=== PATIENT | male | born 1940 | race African-American/Black ===

== ENCOUNTER 2019-03-18 13:08 | Inpatient (IN) | payer MEDICARE, MEDICAID ==
[~2019-03-18] VITALS: Ht 188 cm; Wt 140.4 kg
[2019-03-18] MEDS ORDERED: FUROSEMIDE 20MG/2ML VIAL IVP ONE (16:15)
[2019-03-18 16:26] LABS: CHLORIDE 108 mEq/L (98-107)
[2019-03-18 16:28] LABS: HEMATOCRIT. 29.5 % (42.0-52.0); HEMOGLOBIN. 9.5 g/dL (14.0-18.0); MEAN CORPUSCULAR HEMOGLOBIN 27.5 pg (28.0-32.0); MEAN CORPUSCULAR VOLUME 85.3 fL (80.0-94.0); MEAN PLATELET VOLUME 8.4 fl (7.4-10.4); PLATELET 126 x1000/uL (130-400); RED BLOOD CELL COUNT 3.45 mill/uL (4.7-6.1); RED CELL DISTRIBUTION WIDTH 13.7 % (11.6-14.6)
[2019-03-18] MEDS ORDERED: ALBUTEROL (0.083%) 2.5MG/3ML NEB HHN STA (16:30)
[2019-03-18 16:36] LABS: INR 1.1; PARTIAL THROMBOPLASTIN TIME 30.9 sec (23.4-31.0); PROTHROMBIN TIME 11.4 sec (9.6-11.0)
[2019-03-18 17:08] LABS: PLATELET ESTIMATE DECREASED
[2019-03-18 21:30] VITALS: BP 112/56
[2019-03-18 22:00] VITALS: BP 112/56
[2019-03-18] MEDS ORDERED: DEXTROSE 50% WATER 50ML SYRINGE IV PRN (22:00)
[2019-03-18] MEDS ORDERED: DIPHENHYDRAMINE 50MG/ML VIAL IV PRN (22:00)
[2019-03-18] MEDS ORDERED: ONDANSETRON HCL 4MG/2ML INJ IV PRN (22:00)
[2019-03-18] MEDS ORDERED: IPRATROPIUM/ALBUTEROL 0.5-3(2.5)MG/3ML NEB INH PRN (22:00)
[2019-03-18] MEDS ORDERED: CLONIDINE 0.1MG TABLET PO PRN (22:00)
[2019-03-18] MEDS ORDERED: MAGNESIUM/ALUMINUM HYDROXIDE/SIMETHICONE 30ML UDC PO PRN (22:00)
[2019-03-18] MEDS ORDERED: MAGNESIUM HYDROXIDE 400MG/5ML 30ML UDC PO PRN (22:00)
[2019-03-18] MEDS ORDERED: ACETAMINOPHEN 325MG TABLET PO PRN (22:00)
[2019-03-18] MEDS: ENOXAPARIN 30MG/0.3ML SYR SUBCUT SCH (23:41)
[2019-03-18] MEDS: SODIUM CHLORIDE 0.9% INJ 3ML FLUSH IVF SCH (23:41)
[2019-03-18] MEDS ORDERED: IPRATROPIUM/ALBUTEROL 0.5-3(2.5)MG/3ML NEB HHN PRN (23:45)
[2019-03-18] MEDS: TEMAZEPAM 15MG CAPSULE PO PRN (23:56)
[2019-03-19] MEDS ORDERED: ALEN70TA68 PO (00:13)
[2019-03-19] MEDS ORDERED: HYDR12.54 PO (00:14)
[2019-03-19] MEDS ORDERED: NAPR500T7 PO (00:14)
[2019-03-19] MEDS ORDERED: FERR325T6 PO (00:15)
[2019-03-19] MEDS ORDERED: TERA10CA4 PO (00:16)
[2019-03-19] MEDS ORDERED: AMLO10TA80 PO (00:17)
[2019-03-19] MEDS ORDERED: DOCU100T PO (00:17)
[2019-03-19] MEDS ORDERED: METF-416 PO (00:18)
[2019-03-19] MEDS ORDERED: DUTA0.5C15 PO (00:18)
[2019-03-19] MEDS ORDERED: BENA20TA10 PO (00:19)
[2019-03-19] MEDS ORDERED: ALBU18HF2 IH (00:20)
[2019-03-19 04:00] VITALS: BP 145/81
[2019-03-19] MEDS: SODIUM CHLORIDE 0.9% INJ 3ML FLUSH IVF SCH ×3 (05:37→21:32)
[2019-03-19] MEDS: BLOOD SUGAR DIAGNOSTIC STRIP TEST SCH ×4 (06:18→20:44)
[2019-03-19] MEDS: INSULIN LISPRO 100 UNITS/ML SUBCUT SCH ×4 (07:36→20:44)
[2019-03-19 08:26] VITALS: BP 133/65
[2019-03-19] MEDS: DUTASTERIDE 0.5MG CAPSULE PO SCH (08:59)
[2019-03-19] MEDS: FUROSEMIDE 40MG/4ML VIAL IVP SCH (08:59)
[2019-03-19] MEDS ORDERED: AMLODIPINE 5MG TABLET PO SCH (09:00)
[2019-03-19] MEDS ORDERED: BENAZEPRIL 10MG TABLET PO SCH (09:00)
[2019-03-19] MEDS: DOCUSATE SODIUM 100MG CAPSULE PO SCH (09:01)
[2019-03-19] MEDS: ENOXAPARIN 30MG/0.3ML SYR SUBCUT SCH ×2 (09:12→21:32)
[2019-03-19] MEDS ORDERED: NAPROXEN 375MG TABLET PO SCH (10:15)
[2019-03-19] MEDS ORDERED: TRAMADOL 50MG TABLET PO PRN (10:15)
[2019-03-19 12:00] VITALS: BP 134/62
[2019-03-19] MEDS: NAPROXEN 375MG TABLET PO SCH ×2 (13:24→21:31)
[2019-03-19] MEDS: LOSARTAN POTASSIUM 50 MG TABLET PO SCH (14:17)
[2019-03-19 16:00] VITALS: BP 131/59
[2019-03-19 20:00] VITALS: BP 156/89
[2019-03-19] MEDS: TERAZOSIN HCL 5MG CAPSULE PO SCH (21:31)
[2019-03-19] MEDS: TEMAZEPAM 15MG CAPSULE PO PRN (21:31)
[2019-03-19] MEDS: FAMOTIDINE 20MG TABLET PO SCH (21:32)
[2019-03-20] VITALS (7 sets, daily range): BP systolic 106–139; BP diastolic 61–79
[2019-03-20] MEDS: SODIUM CHLORIDE 0.9% INJ 3ML FLUSH IVF SCH ×3 (06:50→22:00)
[2019-03-20] MEDS: BLOOD SUGAR DIAGNOSTIC STRIP TEST SCH ×4 (06:50→21:54)
[2019-03-20] MEDS: INSULIN LISPRO 100 UNITS/ML SUBCUT SCH ×4 (08:10→21:00)
[2019-03-20] MEDS: DUTASTERIDE 0.5MG CAPSULE PO SCH (09:29)
[2019-03-20] MEDS: FUROSEMIDE 40MG/4ML VIAL IVP SCH (09:29)
[2019-03-20] MEDS: NAPROXEN 375MG TABLET PO SCH ×2 (09:29→22:00)
[2019-03-20] MEDS: DOCUSATE SODIUM 100MG CAPSULE PO SCH (09:29)
[2019-03-20] MEDS: ENOXAPARIN 30MG/0.3ML SYR SUBCUT SCH ×2 (09:29→22:00)
[2019-03-20] MEDS: LOSARTAN POTASSIUM 50 MG TABLET PO SCH (09:31)
[2019-03-20] MEDS: TEMAZEPAM 15MG CAPSULE PO PRN (22:00)
[2019-03-20] MEDS: TERAZOSIN HCL 5MG CAPSULE PO SCH (22:00)
[2019-03-20] MEDS: FAMOTIDINE 20MG TABLET PO SCH (22:00)
[2019-03-21] VITALS (7 sets, daily range): BP systolic 147–176; BP diastolic 68–109
[2019-03-21] MEDS: BLOOD SUGAR DIAGNOSTIC STRIP TEST SCH ×3 (06:14→17:09)
[2019-03-21] MEDS: SODIUM CHLORIDE 0.9% INJ 3ML FLUSH IVF SCH ×2 (06:14→14:29)
[2019-03-21] MEDS: INSULIN LISPRO 100 UNITS/ML SUBCUT SCH ×3 (06:14→17:35)
[2019-03-21] MEDS: FUROSEMIDE 40MG/4ML VIAL IVP SCH (08:58)
[2019-03-21] MEDS: NAPROXEN 375MG TABLET PO SCH (08:58)
[2019-03-21] MEDS: LOSARTAN POTASSIUM 50 MG TABLET PO SCH (08:58)
[2019-03-21] MEDS: DOCUSATE SODIUM 100MG CAPSULE PO SCH (08:58)
[2019-03-21] MEDS: ENOXAPARIN 30MG/0.3ML SYR SUBCUT SCH (08:59)
[2019-03-21] MEDS: DUTASTERIDE 0.5MG CAPSULE PO SCH (08:59)
[2019-03-21] MEDS ORDERED: ENOXAPARIN 40MG/0.4ML SYR SUBCUT SCH (21:00)
== END 2019-03-21 18:46 | disposition home or self-care (01) | DRG 194 ==
LOC: ER 13:08 → 7WST 16:29 → ENRESERV 19:55
PROVIDERS: ADMIT Internal Medicine; ATTEND Internal Medicine
PROC: 5A09357 Assistance with Respiratory Ventilation, Less than 24 Consecutive Hours, Continuous Positive Airway Pressure (ICD-10-PCS; principal; 2019-03-20)
PROC: 5A09357 Assistance with Respiratory Ventilation, Less than 24 Consecutive Hours, Continuous Positive Airway Pressure (ICD-10-PCS; 2019-03-21)
DX: I13.0 Hypertensive heart and chronic kidney disease with heart failure and stage 1 through stage 4 chronic kidney disease, or unspecified chronic kidney disease (principal); J96.00 Acute respiratory failure, unspecified whether with hypoxia or hypercapnia; N17.9 Acute kidney failure, unspecified; E44.0 Moderate protein-calorie malnutrition; M54.30 Sciatica, unspecified side; N40.0 Benign prostatic hyperplasia without lower urinary tract symptoms; G47.30 Sleep apnea, unspecified; E78.5 Hyperlipidemia, unspecified; E66.01 Morbid (severe) obesity due to excess calories; E11.22 Type 2 diabetes mellitus with diabetic chronic kidney disease; D64.9 Anemia, unspecified; E78.00 Pure hypercholesterolemia, unspecified; G89.29 Other chronic pain; J44.9 Chronic obstructive pulmonary disease, unspecified; I50.43 Acute on chronic combined systolic (congestive) and diastolic (congestive) heart failure; I42.9 Cardiomyopathy, unspecified; N18.2 Chronic kidney disease, stage 2 (mild); Z68.39 Body mass index [BMI] 39.0-39.9, adult; Z82.49 Family history of ischemic heart disease and other diseases of the circulatory system; Z87.891 Personal history of nicotine dependence; Z79.84 Long term (current) use of oral hypoglycemic drugs
CPT/HCPCS: 36415; 71045; 82962; 83036; 83880; 84484; 93005; 93306; 93970; 94640; 94660; 96374; 99285; J1650; J1815; J1940; J7050; J7611; J7620

== ENCOUNTER 2019-04-10 13:11 | Inpatient (IN) | payer MEDICARE, MEDICAID ==
[~2019-04-10] VITALS: Ht 193 cm; Wt 143.4 kg
[~2019-04-10 13:11] MED LIST: ALBU18HF2 IH; ALEN70TA68 PO; AMLO10TA80 PO; BENA20TA10 PO; DOCU100T PO; DUTA0.5C15 PO; FERR325T6 PO; HYDR12.54 PO; METF-416 PO; NAPR500T7 PO; TERA10CA4 PO
[2019-04-10] MEDS ORDERED: FUROSEMIDE 40MG/4ML VIAL IV ONE (14:00)
[2019-04-10 14:28] LABS: BASOPHILS % 0.6 % (0.0-2.0); EOSINOPHILS % 9.9 % (0.0-5.0); HEMATOCRIT. 24.1 % (42.0-52.0); HEMOGLOBIN. 7.7 g/dL (14.0-18.0); LYMPHOCYTES % 16.2 % (20.0-50.0); MEAN CORPUSCULAR HEMOGLOBIN 27.4 pg (28.0-32.0); MEAN CORPUSCULAR VOLUME 85.6 fL (80.0-94.0); MEAN PLATELET VOLUME 7.9 fl (7.4-10.4); MONOCYTES % 7.2 % (2.0-8.0); NEUTROPHILS % 66.1 % (40.0-76.0); PLATELET 124 x1000/uL (130-400); RED BLOOD CELL COUNT 2.82 mill/uL (4.7-6.1); RED CELL DISTRIBUTION WIDTH 15.3 % (11.6-14.6)
[2019-04-10 14:37] LABS: CHLORIDE 107 mEq/L (98-107)
[2019-04-10 14:39] LABS: D-DIMER 2.19 mg/L FEU (<0.50); INR 1.1; PARTIAL THROMBOPLASTIN TIME 28.6 sec (23.4-31.0); PROTHROMBIN TIME 11.2 sec (9.6-11.0)
[2019-04-10 14:41] LABS: ETHANOL BLOOD < 10 mg/dL
[2019-04-10 14:50] LABS: BG BASE EXCESS 0.3 mmol/L (-2.0-2.0); BG CARBOXYHEMOGLOBIN 0.3 % (0.5-1.5); BG DEOXYHEMOGLOBIN 2.7 % (0.0-5.0); BG FRACTION INSPIRED OXYGEN 28; BG HCO3 ACT 26.6 mmol/L (22.0-26.0); BG METHEMOGLOBIN 0.6 % (0.0-1.5); BG OXYGEN SATURATION 97.3 % (92.0-98.5); BG OXYHEMOGLOBIN 96.4 % (94.0-97.0); BG PCO2 51.3 mmHg (35.0-45.0); BG PH 7.332 (7.350-7.450); BG PO2 116.6 mmHg (75.0-100.0); BG SAMPLE SITE RIGHT BRACHIAL; BG TOTAL HEMOGLOBIN 9.1 g/dL (12.0-18.0); BG VENT MODE NASAL CANNULA
[2019-04-10] MEDS ORDERED: NITROGLYCERIN OINT 1GM/INCH UDPKT TD ONE ×2 (15:30→16:00)
[2019-04-10 16:40] LABS: CLARITY URINE CLEAR (CLEAR); COLOR URINE YELLOW (YELLOW); KETONES URINE NEGATIVE (NEGATIVE); LEUKOCYTE ESTERASE URINE NEGATIVE (NEGATIVE); NITRITE URINE NEGATIVE (NEGATIVE); OCCULT BLOOD URINE 2+ (NEGATIVE); PROTEIN URINE 3+ (NEGATIVE); SPECIFIC GRAVITY URINE 1.015 (1.005-1.030); UROBILINOGEN URINE 0.2 E.U./dL (0.2-1.0)
[2019-04-10 16:56] LABS: *BARBITURATES SCREEN URINE NEGATIVE (NEGATIVE); *BENZODIAZEPINES SCREEN URINE NEGATIVE (NEGATIVE); *COCAINE SCREEN URINE NEGATIVE (NEGATIVE)
[2019-04-10 16:57] LABS: *AMPHETAMINES SCREEN URINE NEGATIVE (NEGATIVE); CANNABINOID URINE SCREEN NEGATIVE (NEGATIVE); METHADONE URINE SCREEN NEGATIVE (NEGATIVE); OPIATES URINE SCREEN NEGATIVE (NEGATIVE); PHENCYCLIDINE URINE SCREEN NEGATIVE (NEGATIVE)
[2019-04-10 18:57] LABS: BG BASE EXCESS 2.6 mmol/L (-2.0-2.0); BG BILEVEL POS AIRWAY PRESSURE 15/5; BG CARBOXYHEMOGLOBIN 0.7 % (0.5-1.5); BG DEOXYHEMOGLOBIN 1.9 % (0.0-5.0); BG FRACTION INSPIRED OXYGEN 28; BG HCO3 ACT 29.1 mmol/L (22.0-26.0); BG METHEMOGLOBIN 0.1 % (0.0-1.5); BG OXYGEN SATURATION 98.1 % (92.0-98.5); BG OXYHEMOGLOBIN 97.3 % (94.0-97.0); BG PCO2 54.6 mmHg (35.0-45.0); BG PH 7.344 (7.350-7.450); BG PO2 115.6 mmHg (75.0-100.0); BG SAMPLE SITE RIGHT RADIAL; BG TOTAL HEMOGLOBIN 10.2 g/dL (12.0-18.0); BG VENT MODE MASK - BIPAP; BG VENT RATE 16 set
[2019-04-10] MEDS ORDERED: ACETAMINOPHEN 325MG TABLET PO PRN (19:15)
[2019-04-10 21:15] VITALS: BP 153/94
[2019-04-10 22:00] VITALS: BP 172/104
[2019-04-10] MEDS: AMLODIPINE 5MG TABLET PO SCH (22:29)
[2019-04-10] MEDS: CLONIDINE 0.1MG TABLET PO PRN (22:29)
[2019-04-10 23:00] VITALS: BP 153/94
[2019-04-11] VITALS (14 sets, daily range): BP systolic 117–176; BP diastolic 63–96
[2019-04-11] MEDS: IPRATROPIUM/ALBUTEROL 0.5-3(2.5)MG/3ML NEB HHN PRN ×2 (00:22→07:30)
[2019-04-11] MEDS: BUDESONIDE 0.5MG/2ML NEB HHN SCH ×3 (00:22→20:38)
[2019-04-11 06:24] LABS: BASOPHILS % 0.6 % (0.0-2.0); HEMATOCRIT. 23.9 % (42.0-52.0); HEMOGLOBIN. 7.6 g/dL (14.0-18.0); LYMPHOCYTES % 16.2 % (20.0-50.0); MEAN CORPUSCULAR HEMOGLOBIN 27.5 pg (28.0-32.0); MEAN CORPUSCULAR VOLUME 86.2 fL (80.0-94.0); MEAN PLATELET VOLUME 8.7 fl (7.4-10.4); MONOCYTES % 6.8 % (2.0-8.0); NEUTROPHILS % 66.4 % (40.0-76.0); PLATELET 134 x1000/uL (130-400); RED BLOOD CELL COUNT 2.77 mill/uL (4.7-6.1); RED CELL DISTRIBUTION WIDTH 15.2 % (11.6-14.6)
[2019-04-11] MEDS ORDERED: FUROSEMIDE 40MG/4ML VIAL IVP SCH (07:15)
[2019-04-11] MEDS: GUAIFENESIN 600MG ER TABLET PO SCH ×2 (08:55→21:31)
[2019-04-11] MEDS: AMLODIPINE 5MG TABLET PO SCH ×2 (08:55→21:32)
[2019-04-11] MEDS ORDERED: AMLODIPINE 5MG TABLET PO SCH (09:00)
[2019-04-11] MEDS ORDERED: SIMETHICONE 80MG TABLET CHEW PO PRN (10:15)
[2019-04-11] MEDS: FERROUS SULFATE 325MG TABLET PO SCH ×2 (13:28→17:27)
[2019-04-11] MEDS: IPRATROPIUM/ALBUTEROL 0.5-3(2.5)MG/3ML NEB HHN SCH ×2 (14:18→20:38)
[2019-04-11] MEDS ORDERED: EPOETIN ALFA 10000UNITS/ML VIAL SUBCUT NR (21:00)
[2019-04-12] VITALS (16 sets, daily range): BP systolic 107–177; BP diastolic 53–84
[2019-04-12] MEDS: IPRATROPIUM/ALBUTEROL 0.5-3(2.5)MG/3ML NEB HHN SCH ×4 (02:25→20:18)
[2019-04-12 08:58] LABS: BASOPHILS % 0.5 % (0.0-2.0); EOSINOPHILS % 6.4 % (0.0-5.0); HEMATOCRIT. 25.7 % (42.0-52.0); HEMOGLOBIN. 8.4 g/dL (14.0-18.0); LYMPHOCYTES % 16.3 % (20.0-50.0); MEAN CORPUSCULAR HEMOGLOBIN 27.9 pg (28.0-32.0); MEAN CORPUSCULAR VOLUME 85.4 fL (80.0-94.0); MEAN PLATELET VOLUME 8.4 fl (7.4-10.4); MONOCYTES % 7.3 % (2.0-8.0); NEUTROPHILS % 69.5 % (40.0-76.0); PLATELET 126 x1000/uL (130-400); RED BLOOD CELL COUNT 3.01 mill/uL (4.7-6.1); RED CELL DISTRIBUTION WIDTH 14.9 % (11.6-14.6)
[2019-04-12] MEDS ORDERED: FUROSEMIDE 40MG/4ML VIAL IVP SCH (09:00)
[2019-04-12] MEDS: FERROUS SULFATE 325MG TABLET PO SCH ×3 (09:20→17:19)
[2019-04-12] MEDS: GUAIFENESIN 600MG ER TABLET PO SCH ×2 (09:20→21:29)
[2019-04-12] MEDS: AMLODIPINE 5MG TABLET PO SCH ×2 (09:21→21:30)
[2019-04-12 09:39] LABS: PHOSPHORUS 3.3 mg/dL (2.5-4.9)
[2019-04-12] MEDS: ONDANSETRON HCL 4MG/2ML INJ IV PRN ×2 (10:54→17:51)
[2019-04-12] MEDS: BUDESONIDE 0.5MG/2ML NEB HHN SCH ×2 (13:15→20:19)
[2019-04-12] MEDS: FUROSEMIDE 40MG/4ML VIAL IVP SCH (17:20)
[2019-04-12] MEDS: CLONIDINE 0.1MG TABLET PO PRN (18:42)
[2019-04-13] VITALS (13 sets, daily range): BP systolic 133–166; BP diastolic 78–98
[2019-04-13] MEDS: IPRATROPIUM/ALBUTEROL 0.5-3(2.5)MG/3ML NEB HHN SCH ×4 (02:00→21:22)
[2019-04-13] MEDS: FUROSEMIDE 40MG/4ML VIAL IVP SCH ×2 (06:21→17:23)
[2019-04-13 08:02] LABS: BASOPHILS % 0.6 % (0.0-2.0); EOSINOPHILS % 5.6 % (0.0-5.0); HEMATOCRIT. 26.1 % (42.0-52.0); HEMOGLOBIN. 8.3 g/dL (14.0-18.0); LYMPHOCYTES % 15.3 % (20.0-50.0); MEAN CORPUSCULAR HEMOGLOBIN 27.6 pg (28.0-32.0); MEAN CORPUSCULAR VOLUME 86.9 fL (80.0-94.0); MEAN PLATELET VOLUME 8.3 fl (7.4-10.4); MONOCYTES % 8.1 % (2.0-8.0); NEUTROPHILS % 70.4 % (40.0-76.0); PLATELET 118 x1000/uL (130-400)
[2019-04-13] MEDS: FERROUS SULFATE 325MG TABLET PO SCH ×3 (08:06→17:24)
[2019-04-13] MEDS: GUAIFENESIN 600MG ER TABLET PO SCH ×2 (08:07→20:24)
[2019-04-13] MEDS: AMLODIPINE 5MG TABLET PO SCH (08:07)
[2019-04-13 08:35] LABS: PHOSPHORUS 4.2 mg/dL (2.5-4.9)
[2019-04-13] MEDS: BUDESONIDE 0.5MG/2ML NEB HHN SCH ×2 (08:51→21:22)
[2019-04-13] MEDS: CLONIDINE 0.1MG TABLET PO PRN (11:27)
[2019-04-13] MEDS: DILTIAZEM HCL 90MG TABLET PO SCH ×3 (12:20→23:15)
[2019-04-14] VITALS (22 sets, daily range): BP systolic 133–170; BP diastolic 73–106
[2019-04-14] MEDS: IPRATROPIUM/ALBUTEROL 0.5-3(2.5)MG/3ML NEB HHN SCH ×4 (02:30→21:27)
[2019-04-14] MEDS: DILTIAZEM HCL 90MG TABLET PO SCH ×4 (05:04→21:09)
[2019-04-14] MEDS: CLONIDINE 0.1MG TABLET PO PRN (05:07)
[2019-04-14 06:25] LABS: PHOSPHORUS 3.7 mg/dL (2.5-4.9)
[2019-04-14 06:26] LABS: BASOPHILS % 0.6 % (0.0-2.0); EOSINOPHILS % 5.2 % (0.0-5.0); HEMATOCRIT. 24.2 % (42.0-52.0); HEMOGLOBIN. 7.8 g/dL (14.0-18.0); LYMPHOCYTES % 15.6 % (20.0-50.0); MEAN CORPUSCULAR HEMOGLOBIN 27.6 pg (28.0-32.0); MEAN PLATELET VOLUME 8.4 fl (7.4-10.4); MONOCYTES % 7.7 % (2.0-8.0); NEUTROPHILS % 70.9 % (40.0-76.0); PLATELET 115 x1000/uL (130-400); RED BLOOD CELL COUNT 2.81 mill/uL (4.7-6.1); RED CELL DISTRIBUTION WIDTH 15.1 % (11.6-14.6)
[2019-04-14] MEDS: BUDESONIDE 0.5MG/2ML NEB HHN SCH (08:03)
[2019-04-14] MEDS: FUROSEMIDE 40MG/4ML VIAL IVP SCH ×2 (08:47→17:13)
[2019-04-14] MEDS: GUAIFENESIN 600MG ER TABLET PO SCH ×2 (08:48→21:09)
[2019-04-14] MEDS: FERROUS SULFATE 325MG TABLET PO SCH ×3 (08:48→17:12)
[2019-04-14 09:09] LABS: BG BASE EXCESS 3.8 mmol/L (-2.0-2.0); BG CARBOXYHEMOGLOBIN 0.9 % (0.5-1.5); BG DEOXYHEMOGLOBIN 3.2 % (0.0-5.0); BG FRACTION INSPIRED OXYGEN 28; BG HCO3 ACT 29.7 mmol/L (22.0-26.0); BG METHEMOGLOBIN 0.2 % (0.0-1.5); BG OXYGEN SATURATION 96.8 % (92.0-98.5); BG OXYHEMOGLOBIN 95.7 % (94.0-97.0); BG PCO2 51.9 mmHg (35.0-45.0); BG PH 7.375 (7.350-7.450); BG PO2 92.7 mmHg (75.0-100.0); BG SAMPLE SITE RIGHT RADIAL; BG TOTAL HEMOGLOBIN 8.6 g/dL (12.0-18.0); BG VENT MODE NASAL CANNULA
[2019-04-14] MEDS ORDERED: CLONIDINE 0.1MG TABLET PO SCH (14:00)
[2019-04-14] MEDS: DOCUSATE SODIUM 100MG CAPSULE PO SCH (17:12)
[2019-04-14] MEDS: CLONIDINE 0.1MG TABLET PO SCH (17:13)
[2019-04-14] MEDS: ONDANSETRON HCL 4MG/2ML INJ IV PRN (18:16)
[2019-04-15] VITALS (12 sets, daily range): BP systolic 132–158; BP diastolic 58–121
[2019-04-15] MEDS: IPRATROPIUM/ALBUTEROL 0.5-3(2.5)MG/3ML NEB HHN SCH ×4 (02:02→20:00)
[2019-04-15] MEDS: DILTIAZEM HCL 90MG TABLET PO SCH ×4 (06:01→21:26)
[2019-04-15] MEDS: FUROSEMIDE 40MG/4ML VIAL IVP SCH ×2 (06:02→17:02)
[2019-04-15 06:47] LABS: BASOPHILS % 0.6 % (0.0-2.0); EOSINOPHILS % 4.3 % (0.0-5.0); HEMATOCRIT. 25.1 % (42.0-52.0); HEMOGLOBIN. 8.2 g/dL (14.0-18.0); LYMPHOCYTES % 13.6 % (20.0-50.0); MEAN CORPUSCULAR VOLUME 85.8 fL (80.0-94.0); MEAN PLATELET VOLUME 8.4 fl (7.4-10.4); MONOCYTES % 6.8 % (2.0-8.0); NEUTROPHILS % 74.7 % (40.0-76.0); PLATELET 125 x1000/uL (130-400); RED BLOOD CELL COUNT 2.92 mill/uL (4.7-6.1)
[2019-04-15] MEDS: CLONIDINE 0.1MG TABLET PO SCH (08:53)
[2019-04-15] MEDS: DOCUSATE SODIUM 100MG CAPSULE PO SCH ×2 (08:53→17:02)
[2019-04-15] MEDS: FERROUS SULFATE 325MG TABLET PO SCH ×3 (08:53→17:05)
[2019-04-15] MEDS: GUAIFENESIN 600MG ER TABLET PO SCH ×2 (08:53→21:26)
[2019-04-15] MEDS: BUDESONIDE 0.5MG/2ML NEB HHN SCH ×2 (09:03→20:00)
[2019-04-15 09:11] LABS: COMPLEMENT C3 111 mg/dL (82-167); GLOMERULAR BASEMENT MEMB AB 5 units (0-20)
[2019-04-15 09:18] LABS: PHOSPHORUS 3.6 mg/dL (2.5-4.9)
[2019-04-15 13:10] LABS: ANTI-MYELOPEROXIDASE AB < 9.0 U/mL (0.0-9.0); ANTI-PROTEINASE 3 ABS < 3.5 U/mL (0.0-3.5); ATYPICAL P-ANCA <1:20 titer (Neg:<1:20); CYTOPLASMIC C-ANCA <1:20 titer (Neg:<1:20); PERINUCLEAR P-ANCA <1:20 titer (Neg:<1:20)
[2019-04-15] MEDS: CLONIDINE 0.2MG TABLET PO SCH ×2 (14:14→21:26)
[2019-04-15] MEDS ORDERED: LACTULOSE 20G/30ML UDC PO NR (14:15)
[2019-04-15 15:52] LABS: BG BASE EXCESS 3.4 mmol/L (-2.0-2.0); BG CARBOXYHEMOGLOBIN 0.8 % (0.5-1.5); BG HCO3 ACT 28.7 mmol/L (22.0-26.0); BG METHEMOGLOBIN 0.2 % (0.0-1.5); BG OXYGEN SATURATION 90.9 % (92.0-98.5); BG PH 7.395 (7.350-7.450); BG PO2 60.1 mmHg (75.0-100.0); BG SAMPLE SITE RIGHT RADIAL; BG TOTAL HEMOGLOBIN 8.8 g/dL (12.0-18.0); BG VENT MODE ROOM AIR
[2019-04-16] VITALS (11 sets, daily range): BP systolic 131–161; BP diastolic 43–87
[2019-04-16] MEDS: IPRATROPIUM/ALBUTEROL 0.5-3(2.5)MG/3ML NEB HHN SCH ×3 (00:23→13:05)
[2019-04-16] MEDS: DILTIAZEM HCL 90MG TABLET PO SCH ×3 (06:13→18:06)
[2019-04-16] MEDS: CLONIDINE 0.2MG TABLET PO SCH ×2 (06:13→13:31)
[2019-04-16] MEDS: FUROSEMIDE 40MG TABLET PO SCH ×2 (06:15→18:06)
[2019-04-16] MEDS: GUAIFENESIN 600MG ER TABLET PO SCH (08:31)
[2019-04-16] MEDS: DOCUSATE SODIUM 100MG CAPSULE PO SCH ×2 (08:31→18:07)
[2019-04-16] MEDS: FERROUS SULFATE 325MG TABLET PO SCH ×3 (08:31→18:06)
[2019-04-16] MEDS: BUDESONIDE 0.5MG/2ML NEB HHN SCH (09:30)
[2019-04-16 10:18] LABS: BASOPHILS % 0.7 % (0.0-2.0); EOSINOPHILS % 5.4 % (0.0-5.0); HEMATOCRIT. 24.4 % (42.0-52.0); HEMOGLOBIN. 7.8 g/dL (14.0-18.0); LYMPHOCYTES % 16.7 % (20.0-50.0); MEAN CORPUSCULAR HEMOGLOBIN 27.6 pg (28.0-32.0); MEAN CORPUSCULAR VOLUME 86.1 fL (80.0-94.0); MEAN PLATELET VOLUME 7.9 fl (7.4-10.4); MONOCYTES % 7.4 % (2.0-8.0); NEUTROPHILS % 69.8 % (40.0-76.0); PLATELET 121 x1000/uL (130-400); RED BLOOD CELL COUNT 2.83 mill/uL (4.7-6.1); RED CELL DISTRIBUTION WIDTH 14.9 % (11.6-14.6)
[2019-04-16] MEDS ORDERED: FURO40TA5 PO (10:24)
[2019-04-16] MEDS ORDERED: DILT90TA2 PO (10:24)
[2019-04-16] MEDS ORDERED: GUAI600T44 PO (10:24)
[2019-04-16] MEDS ORDERED: DOCU-138 PO (10:24)
[2019-04-16] MEDS ORDERED: GLIP5TAB12 MT (10:26)
[2019-04-16 10:39] LABS: PHOSPHORUS 3.3 mg/dL (2.5-4.9)
[2019-04-16] MEDS ORDERED: LACTULOSE 20G/30ML UDC PO NR (10:45)
== END 2019-04-16 19:13 | disposition home or self-care (01) | DRG 133 ==
LOC: ER 13:11 → EDBEDREQ 18:34 → EDBEDREQTM 18:34 → 5EST 19:03 → EDBEDREQ 19:05 → EDBEDREQSVC 19:05 → EDBEDREQTM 19:05 → ENRESERV 20:22 → 5EST 21:58
PROVIDERS: ADMIT Internal Medicine; ATTEND Internal Medicine
PROC: 5A09357 Assistance with Respiratory Ventilation, Less than 24 Consecutive Hours, Continuous Positive Airway Pressure (ICD-10-PCS; principal; 2019-04-10)
PROC: 5A09357 Assistance with Respiratory Ventilation, Less than 24 Consecutive Hours, Continuous Positive Airway Pressure (ICD-10-PCS; 2019-04-13)
PROC: 5A09357 Assistance with Respiratory Ventilation, Less than 24 Consecutive Hours, Continuous Positive Airway Pressure (ICD-10-PCS; 2019-04-14)
PROC: 5A09357 Assistance with Respiratory Ventilation, Less than 24 Consecutive Hours, Continuous Positive Airway Pressure (ICD-10-PCS; 2019-04-16)
DX: J96.21 Acute and chronic respiratory failure with hypoxia (principal); E43 Unspecified severe protein-calorie malnutrition; N17.9 Acute kidney failure, unspecified; I50.33 Acute on chronic diastolic (congestive) heart failure; E87.2 Acidosis; D69.6 Thrombocytopenia, unspecified; E11.22 Type 2 diabetes mellitus with diabetic chronic kidney disease; E66.2 Morbid (severe) obesity with alveolar hypoventilation; I13.0 Hypertensive heart and chronic kidney disease with heart failure and stage 1 through stage 4 chronic kidney disease, or unspecified chronic kidney disease; D63.8 Anemia in other chronic diseases classified elsewhere; J96.22 Acute and chronic respiratory failure with hypercapnia; N18.3 Chronic kidney disease, stage 3 (moderate); N40.0 Benign prostatic hyperplasia without lower urinary tract symptoms; E78.5 Hyperlipidemia, unspecified; E78.00 Pure hypercholesterolemia, unspecified; Z82.49 Family history of ischemic heart disease and other diseases of the circulatory system; Z83.3 Family history of diabetes mellitus; Z68.38 Body mass index [BMI] 38.0-38.9, adult; Z71.89 Other specified counseling; Z79.899 Other long term (current) drug therapy
CPT/HCPCS: 36415; 36600; 71045; 76770; 80048; 80061; 80305; 80320; 82375; 82728; 82805; 82962; 83520; 83540; 83550; 83735; 83880; 84100; 84443; 84484; 85379; 86160; 86256; 93005; 94640; 94660; 99291; J0885; J1940; J2405; J7620; J7626; A4315; G0480